=== PATIENT | female | born 1960 | race Caucasian/White ===

== ENCOUNTER 2018-08-21 20:14 | Emergency (ER) | payer MEDICAID ==
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
[2018-08-21 21:09] LABS: PLATELET COUNT, AUTOMATED 170 K/uL (150-450)
--- NOTE | 2018-08-21 21:53 | RADIOLOGY IMAGING REPORT ---
FACILITY: [facility] - [place], [place] PATIENT NAME: Cassie Mead : 1960 MR: [id number] V: [id number] EXAM DATE: ORDERING PHYSICIAN: KAREN SWANN TECHNOLOGIST: Location: [facility] Patient: Cassie Mead : 1960 Visit/Account:[id number] Date of Sevice: 08/21/2018 KNEE 4 VIEW RIGHT HISTORY: Fall with pain. COMPARISON: None. TECHNIQUE: AP, lateral, oblique, and sunrise views of the right knee. FINDINGS: There is no fracture or dislocation. No joint effusion. IMPRESSION: 1. No acute osseous abnormality of the right knee. Report Dictated By: Alanna Hernandez at 08/21/2018 9:48 PM Report E-Signed By: Alanna Hernandez at 08/21/2018 9:49 PM WSN:[id number]
--- NOTE | 2018-08-21 21:54 | RADIOLOGY IMAGING REPORT ---
FACILITY: [facility] - [place] PATIENT NAME: Cassie Mead : 1960 MR: [id number] V: [id number] EXAM DATE: ORDERING PHYSICIAN: KAREN SWANN TECHNOLOGIST: Location: [facility] Patient: Cassie Mead : 1960 Visit/Account:[id number] Date of Sevice: 08/21/2018 HAND COMPLETE RIGHT HISTORY: Fall with right wrist pain. COMPARISON: None. TECHNIQUE: PA, oblique, and lateral views of the right hand. FINDINGS: There is no fracture or dislocation. There is mild degenerative change of the first carpome tacarpal joint and of the first metacarpophalangeal joint. IMPRESSION: 1. No acute osseous abnormality of the right hand. Report Dictated By: Alanna Hernandez at 08/21/2018 9:49 PM Report E-Signed By: Alanna Hernandez at 08/21/2018 9:51 PM WSN:[id number]
--- NOTE | 2018-08-21 21:59 | RADIOLOGY IMAGING REPORT ---
FACILITY: [facility] [place] PATIENT NAME: Cassie Mead : 1960 MR: [id number] V: [id number] EXAM DATE: ORDERING PHYSICIAN: KAREN SWANN TECHNOLOGIST: Location: [facility] Patient: Cassie Mead : 1960 Visit/Account:[id number] Date of Sevice: 08/21/2018 CT BRAIN NO CONTRAST HISTORY: Fell and hit head. Right anterior head pain. COMPARISON: None. TECHNIQUE: Axial images were obtained from the skull base to the vertex without contrast. Sagittal an d coronal reformats were performed. One of the following dose optimization techniques was utilized in the performance of this exam: Autom ated exposure control; adjustment of the mA and/or kV according to the patient's size; or use of an i terative reconstruction technique. Specific details can be referenced in the facility's radiology CT exam operational policy. CONTRAST: None. FINDINGS: Brain: No intracranial hemorrhage, mass, or edema. There are nonspecific periventricular and subcorti miorslava white matter low attenuation foci, mild in severity. There is mild calcification of the internal carotid arteries. Sulci, ventricles, and cisterns: Sulci are prominent, compatible with mild atrophy, normal for age. T he ventricles are normal in size and configuration. The basilar cisterns are patent. Osseous structures: Intact. Paranasal sinuses and mastoids: Normal. There is rightward nasal septal deviation, and there is a sma ll rightward nasal septal spur. Orbits and soft tissues: There is a small contusion of the right anterolateral frontal scalp (image 4 8 series 2). Orbits are normal. IMPRESSION: 1. Scalp contusion, but no acute intracranial abnormality. 2. Nonspecific white matter changes are most likely due to chronic microvascular ischemic change, mil d in severity. Report Dictated By: Alanna Hernandez at 08/21/2018 9:51 PM Report E-Signed By: Alanna Hernandez at 08/21/2018 9:56 PM WSN:[id number]
[2018-08-21 22:30] VITALS: BP 109/78
[2018-08-21] MEDS ORDERED: NITROFURANTOIN MONO 100 MG PO ONE (22:30)
[2018-08-21] MEDS ORDERED: GABA-533 PO (22:43)
[2018-08-21] MEDS ORDERED: ABILIF5PT PO (22:43)
[2018-08-21] MEDS ORDERED: SERT25TA87 PO (22:43)
[2018-08-21] MEDS ORDERED: OMEP40CA48 PO (22:43)
[2018-08-21] MEDS ORDERED: METF-450 PO (22:43)
[2018-08-22] MEDS ORDERED: OXYB10TA16 PO (09:48)
[2018-08-22] MEDS ORDERED: GABA-549 PO (09:49)
[2018-08-22] MEDS ORDERED: TRAZ50TA34 PO (19:04)
[2018-08-22] MEDS ORDERED: PANT40TA65 PO (19:04)
[2018-08-22] MEDS ORDERED: SERT-181 PO (19:04)
== END 2018-08-21 23:14 ==
LOC: ER 20:43
DX: F33.1 Major depressive disorder, recurrent, moderate (principal); N30.01 Acute cystitis with hematuria; F10.20 Alcohol dependence, uncomplicated; S60.221A Contusion of right hand, initial encounter; S80.01XA Contusion of right knee, initial encounter; S00.03XA Contusion of scalp, initial encounter; W01.0XXA Fall on same level from slipping, tripping and stumbling without subsequent striking against object, initial encounter
CPT/HCPCS: 36415; 70450; 73130; 73564; 80305; 81001; 83735; 84443; 85025; 87077; 87088; 87186; 99284; G0480; 80320; 80329; 82040; 82247; 82310; 82374; 82435; 82565; 82947; 84075; 84132; 84155; 84295; 84450; 84460; 84520

== ENCOUNTER 2018-08-21 23:01 | Inpatient (IN) | payer MEDICAID ==
[~2018-08-21] VITALS: Ht 157.5 cm; Wt 64.0 kg
[~2018-08-21 23:01] MED LIST: ABILIF5PT PO; GABA-533 PO; METF-450 PO; OMEP40CA48 PO; SERT25TA87 PO
[2018-08-21] MEDS ORDERED: MAG HYD/AL HYD/SIMETH 30ML UDC PO PRN (23:10)
[2018-08-21 23:29] VITALS: BP 122/84
[2018-08-21] MEDS: DIAZEPAM 10 MG TAB PO PRN (23:59)
[2018-08-22 06:20] VITALS: BP 139/82
[2018-08-22] MEDS: DIAZEPAM 10 MG TAB PO PRN (06:29)
[2018-08-22 08:10] VITALS: BP 118/72
[2018-08-22] MEDS: FOLIC ACID 1 MG TAB PO SCH (08:34)
[2018-08-22] MEDS: NICOTINE 21 MG/24 HR PATCH TD SCH (08:34)
[2018-08-22] MEDS: MULTIVITAMINS TAB PO SCH (08:34)
[2018-08-22] MEDS: THIAMINE HCL 100 MG TAB PO SCH (08:35)
[2018-08-22] MEDS: PATCH REMOVAL 1 EA TP SCH (08:36)
[2018-08-22] MEDS ORDERED: OXYB10TA16 PO (09:48)
[2018-08-22] MEDS ORDERED: GABA-549 PO (09:49)
[2018-08-22] MEDS: PANTOPRAZOLE SOD 40 MG TABEC PO SCH ×2 (10:29→21:05)
[2018-08-22] MEDS: GABAPENTIN 300 MG CAP PO SCH ×3 (10:29→21:05)
[2018-08-22] MEDS: SERTRALINE HCL 50 MG TAB PO SCH (10:29)
[2018-08-22] MEDS: NITROFURANTOIN MONO 100 MG PO SCH ×2 (10:29→21:05)
[2018-08-22] MEDS: OXYBUTYNIN CHL XL 5 MG TABCR PO SCH (10:29)
[2018-08-22] MEDS: metFORMIN HCL 500 MG TAB PO SCH ×2 (10:29→17:12)
[2018-08-22] MEDS: ARIPiprazole 10 MG TAB PO SCH (10:30)
[2018-08-22 12:35] VITALS: BP 118/72
[2018-08-22 18:10] VITALS: BP 130/82
[2018-08-22] MEDS ORDERED: PANT40TA65 PO (19:04)
[2018-08-22] MEDS ORDERED: TRAZ50TA34 PO (19:04)
[2018-08-22] MEDS ORDERED: SERT-181 PO (19:04)
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
[2018-08-23 03:40] VITALS: BP 110/77
--- NOTE | 2018-08-23 08:02 | Antimicrobial Stewardship ---
Antimicrobial Time Out Antimicrobial Stewardship MD Service: Other (Psychiatrist) Indications: UTI Antimicrobial Used Macrodantin 100 mg po bid Start Date: Aug 22, 2018 Culture Results: No (gram negative rods with sensitivities to follow) KEANU RAMOS Aug 23, 2018 08:02
[2018-08-23 08:08] VITALS: BP 117/81
[2018-08-23] MEDS: metFORMIN HCL 500 MG TAB PO SCH ×2 (08:29→17:12)
[2018-08-23] MEDS: SERTRALINE HCL 50 MG TAB PO SCH (08:31)
[2018-08-23] MEDS: ARIPiprazole 10 MG TAB PO SCH (08:32)
[2018-08-23] MEDS: PANTOPRAZOLE SOD 40 MG TABEC PO SCH ×2 (08:32→20:22)
[2018-08-23] MEDS: FOLIC ACID 1 MG TAB PO SCH (08:32)
[2018-08-23] MEDS: GABAPENTIN 300 MG CAP PO SCH ×3 (08:33→20:22)
[2018-08-23] MEDS: OXYBUTYNIN CHL XL 5 MG TABCR PO SCH (08:33)
[2018-08-23] MEDS: THIAMINE HCL 100 MG TAB PO SCH (08:34)
[2018-08-23] MEDS: NITROFURANTOIN MONO 100 MG PO SCH ×2 (08:34→20:22)
[2018-08-23] MEDS: MULTIVITAMINS TAB PO SCH (08:34)
[2018-08-23] MEDS: NICOTINE 21 MG/24 HR PATCH TD SCH (08:38)
[2018-08-23] MEDS: PATCH REMOVAL 1 EA TP SCH (08:40)
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
[2018-08-23 20:59] VITALS: BP 109/94
[2018-08-24 04:00] VITALS: BP 116/69
[2018-08-24 07:37] LABS: PLATELET COUNT, AUTOMATED 92 K/uL (150-450)
[2018-08-24] MEDS: metFORMIN HCL 500 MG TAB PO SCH ×2 (08:24→17:02)
[2018-08-24] MEDS: GABAPENTIN 300 MG CAP PO SCH ×3 (08:25→20:46)
[2018-08-24] MEDS: NITROFURANTOIN MONO 100 MG PO SCH ×2 (08:25→20:45)
[2018-08-24] MEDS: ARIPiprazole 10 MG TAB PO SCH (08:25)
[2018-08-24] MEDS: PANTOPRAZOLE SOD 40 MG TABEC PO SCH ×2 (08:25→20:46)
[2018-08-24] MEDS: MULTIVITAMINS TAB PO SCH (08:25)
[2018-08-24] MEDS: PATCH REMOVAL 1 EA TP SCH (08:25)
[2018-08-24] MEDS: THIAMINE HCL 100 MG TAB PO SCH (08:25)
[2018-08-24] MEDS: OXYBUTYNIN CHL XL 5 MG TABCR PO SCH (08:25)
[2018-08-24] MEDS: FOLIC ACID 1 MG TAB PO SCH (08:25)
[2018-08-24] MEDS: SERTRALINE HCL 50 MG TAB PO SCH (08:26)
[2018-08-24] MEDS: NICOTINE 21 MG/24 HR PATCH TD SCH (08:28)
[2018-08-24 09:35] VITALS: BP 109/85
--- NOTE | 2018-08-24 14:14 | Medical Nutrition Therapy ---
Nutrition Anthropometrics Height (Inches): 62.00 Height (Calculated Centimeters: 157.520886 Weight (Pounds): 141 Weight (Calculated Kilograms): 63.957 BMI: 25.8 Ollie Nutrition Score: Adequate Ollie Nutrition Risk Score: 21 Dietary Referral Nutrition Risk Factors: Nutrition Risk Comment: Physical Findings Physical Appearance: Overweight BMI 25-29 Skin Appearance Skin Appearance: Edema Edema Location Modifier: Edema Location: Type of Edema: Degree of Edema: Gastrointestinal Symptoms GI Symtoms: Tube Present: Bowel Sounds: Recent Bowel Pattern: Stool Characteristics: Nutritional Education Nutrition Education Topic: Diabetic Nutrition Learning Barriers: Emotional Learning Readiness: Interested Teaching Methods: Discussion, Handout Response to Teaching: Verbalize understanding, Reinforcement needed Teaching Recipient: Patient Nutrition Counseling: Pt states she is either diabetic or prediabetic and doesn't know which. Explained parameters for prediabetes and diabetes. Assured pt that diet and medication she is on ( metformin) would be the same whichever dx she has. Reviewed CHO, protein, fats. Pt states she would like to lose the 10# she has gained recently. Encouaged pt to limit CHO to 3 serving/meal with unlimited veg and 3-4 oz meat, 1-2 fats. Nutrition Monitoring & Eval RD Patient Assessment Time: 45 minutes Nutritional Comment: provided 45 minutes diabetes education focusing on nutrition DIAMOND CISSE Aug 24, 2018 14:14
--- NOTE | 2018-08-24 14:46 | BHS Progress Note ---
BHS - Subjective Progress Notes Subjective Pt seen in conference room with team. Pt reports brighter mood, denies alcohol cravings but does have cigarette cravings; is using nicotine replacement. she is more open to going to rehab, asking good questions about the different programs in the state. She was informed that she cannot return to [facility] til she has had some treatment, and she shows good insight, saying "It's too easy to walk down the street and buy liquor." Will do applications to rehabs. PPD placed yesterday. Her sugars have been high-- will check fasting lipids, Hgb A1c, and consult Medicine tomorrow. Suicidal Ideation: None Homicidal Ideation: None BHS - Objective Physical Exam Vital Signs Vital Signs 08/23/18 08/24/18 03:40 09:35 Temp 99.9 Pulse 75 Resp 16 B/P (MAP) 109/85 (93) Pulse Ox 93 O2 Delivery Room Air O2 Flow Rate 2.0 Muscle Strength and Tone: WNL Gait and Station: Steady [facility] Medications Reviewed: Side Effects, Benefits of Medication, Risks Allergies Reviewed: Yes Mental Status Exam General Appearance: Casual, Cooperative, Polite, Good Interaction Speech: Delayed Mood: Dysthmic/Depressed Affect: Calm, Sad Thought Process: Organized, Logical, Goal Directed Thought Content: No Suicidal Ideation, No Homicidal Ideation, No Delusions, No Auditory Halllucinations, No Visual Hallucinations, No Thought Broadcasting, No Ideas of Reference, No Obsessions, No Compulsions, No Other Sensorium: Clear Cognition: Alert & Oriented-Person, Alert & Oriented-Place, Alert & Oriented- Time, Nzcbh-Uqmdorsv-Kygveexdz Memory: Immediate, Recent, Remote Intelligence: Average Insight Judgment: Fair Result Diagram: 08/24/18 0720 08/24/18 0720 Lab Hematology Test 08/22/18 21:00 08/24/18 00:00 08/24/18 07:20 Whole Blood Glucose 166 mg/DL (75-110) Hemoglobin A1c 6.8 % (4.6-6.0) Red Blood Count 4.20 M/uL (4.17-5.56) Mean Corpuscular Volume 102.5 fL (80.0-96.0) Mean Corpuscular Hemoglobin 34.8 pg (26.0-33.0) Mean Corpuscular Hemoglobin Concent 33.9 g/dL (32.0-36.0) Red Cell Distribution Width 14.6 % (11.5-14.5) Mean Platelet Volume 10.1 fL (7.2-11.1) Neutrophils (%) (Auto) 71.1 % (39.4-72.5) Lymphocytes (%) (Auto) 20.6 % (17.6-49.6) Monocytes (%) (Auto) 7.4 % (4.1-12.4) Eosinophils (%) (Auto) 0.7 % (0.4-6.7) Basophils (%) (Auto) 0.2 % (0.3-1.4) Nucleated RBC Relative Count (auto) 0.0 /100WBC Neutrophils # (Auto) 3.2 K/uL (2.0-7.4) Lymphocytes # (Auto) 0.9 K/uL (1.3-3.6) Monocytes # (Auto) 0.3 K/uL (0.3-1.0) Eosinophils # (Auto) 0.0 K/uL (0.0-0.5) Basophils # (Auto) 0.0 K/uL (0.0-0.1) Nucleated RBC Absolute Count (auto) 0.00 K/uL Sodium Level 138 mmol/L (137-145) Potassium Level 3.4 mmol/L (3.5-5.0) Chloride Level 100 mmol/L (98-107) Carbon Dioxide Level 29 mmol/L (22-31) Blood Urea Nitrogen 11 mg/dl (7-18) Creatinine 0.60 mg/dl (0.52-1.04) Glomerular Filtration Rate Calc > 60.0 Random Glucose 164 mg/dl (75-110) Calcium Level 9.2 mg/dl (8.4-10.2) Total Bilirubin 0.7 mg/dl (0.2-1.3) Aspartate Amino Transf (AST/SGOT) 29 U/L (0-35) Alanine Aminotransferase (ALT/SGPT) 27 U/L (0-56) Alkaline Phosphatase 111 U/L (0-126) Total Protein 6.1 g/dl (6.3-8.2) Albumin 3.7 g/dl (3.5-5.0) Chemistry Test 08/22/18 21:00 08/24/18 00:00 08/24/18 07:20 Whole Blood Glucose 166 mg/DL (75-110) Hemoglobin A1c 6.8 % (4.6-6.0) White Blood Count 4.5 k/uL (4.5-11.0) Red Blood Count 4.20 M/uL (4.17-5.56) Hemoglobin 14.6 g/dL (12.0-16.0) Hematocrit 43.1 % (34.0-47.0) Mean Corpuscular Volume 102.5 fL (80.0-96.0) Mean Corpuscular Hemoglobin 34.8 pg (26.0-33.0) Mean Corpuscular Hemoglobin Concent 33.9 g/dL (32.0-36.0) Red Cell Distribution Width 14.6 % (11.5-14.5) Platelet Count 92 K/uL (150-450) Mean Platelet Volume 10.1 fL (7.2-11.1) Neutrophils (%) (Auto) 71.1 % (39.4-72.5) Lymphocytes (%) (Auto) 20.6 % (17.6-49.6) Monocytes (%) (Auto) 7.4 % (4.1-12.4) Eosinophils (%) (Auto) 0.7 % (0.4-6.7) Basophils (%) (Auto) 0.2 % (0.3-1.4) Nucleated RBC Relative Count (auto) 0.0 /100WBC Neutrophils # (Auto) 3.2 K/uL (2.0-7.4) Lymphocytes # (Auto) 0.9 K/uL (1.3-3.6) Monocytes # (Auto) 0.3 K/uL (0.3-1.0) Eosinophils # (Auto) 0.0 K/uL (0.0-0.5) Basophils # (Auto) 0.0 K/uL (0.0-0.1) Nucleated RBC Absolute Count (auto) 0.00 K/uL Glomerular Filtration Rate Calc > 60.0 Calcium Level 9.2 mg/dl (8.4-10.2) Total Bilirubin 0.7 mg/dl (0.2-1.3) Aspartate Amino Transf (AST/SGOT) 29 U/L (0-35) Alanine Aminotransferase (ALT/SGPT) 27 U/L (0-56) Alkaline Phosphatase 111 U/L (0-126) Total Protein 6.1 g/dl (6.3-8.2) Albumin 3.7 g/dl (3.5-5.0) [facility] Assessment and Plan Tdfn-[id number] Encounter Date: Aug 24, 2018 Lmwh-nf-Akvy Encounter Time: 11:00 [facility] Plan: Necessary Precautions, Individual/Group Therapy, Admin/Titrate Meds, Educate Patient Tobacco Medications: Started Multpiple Antipsychotics Used: No Problems: (1) Alcohol use disorder, severe, dependence (2) Persistent depressive disorder SUZI TUCKER MD Aug 24, 2018 14:46
[2018-08-25 06:55] VITALS: BP 126/68
[2018-08-25] MEDS: metFORMIN HCL 500 MG TAB PO SCH ×2 (08:09→17:14)
[2018-08-25] MEDS: FOLIC ACID 1 MG TAB PO SCH (08:10)
[2018-08-25] MEDS: PANTOPRAZOLE SOD 40 MG TABEC PO SCH ×2 (08:10→20:48)
[2018-08-25] MEDS: ARIPiprazole 10 MG TAB PO SCH (08:10)
[2018-08-25] MEDS: OXYBUTYNIN CHL XL 5 MG TABCR PO SCH (08:10)
[2018-08-25] MEDS: GABAPENTIN 300 MG CAP PO SCH ×3 (08:10→20:48)
[2018-08-25] MEDS: MULTIVITAMINS TAB PO SCH (08:10)
[2018-08-25] MEDS: NITROFURANTOIN MONO 100 MG PO SCH ×2 (08:10→20:48)
[2018-08-25] MEDS: PATCH REMOVAL 1 EA TP SCH (08:10)
[2018-08-25] MEDS: THIAMINE HCL 100 MG TAB PO SCH (08:10)
[2018-08-25] MEDS: SERTRALINE HCL 50 MG TAB PO SCH (08:11)
[2018-08-25] MEDS: NICOTINE 21 MG/24 HR PATCH TD SCH (08:13)
[2018-08-25 13:30] VITALS: BP 112/62
--- NOTE | 2018-08-25 20:38 | BHS Progress Note ---
[facility] - Subjective Progress Notes Subjective Pt seen in treatment team meeting with two representatives from [facility] attending. Pt doing better, she has completed detox, denies alcohol cravings. She has been very active in her treatment, and is now clear that she wants to go to rehab. [facility] in [place] has a possible bed open next week, and application has been sent. Hopefully daughter can transport, and [facility] will look in to contribution for gas money. She is tolerating medications well without side effects-- denies agitation, no EPS noted, sleeping OK, appetite has been good. Continue current tx plan. Suicidal Ideation: None Homicidal Ideation: None [facility] - Objective Physical Exam Vital Signs Vital Signs 08/23/18 08/25/18 03:40 13:30 Temp 99.1 Pulse 93 Resp 16 B/P (MAP) 112/62 (79) Pulse Ox 90 O2 Delivery Room Air O2 Flow Rate 2.0 Muscle Strength and Tone: WNL Gait and Station: Steady [facility] Medications Reviewed: Side Effects, Benefits of Medication, Risks Allergies Reviewed: Yes Mental Status Exam General Appearance: Casual, Well Groomed, Good Eye Contact, Cooperative, Polite, Good Interaction Speech: Clear, Spontaneous, Normal Rate, Normal Rhythm, Normal Volume, Normal Tone Mood: Dysthmic/Depressed (less so, "feeling better") Affect: Calm, Neutral Thought Process: Organized, Logical, Goal Directed Thought Content: No Suicidal Ideation, No Homicidal Ideation, No Delusions, No Auditory Halllucinations, No Visual Hallucinations, No Thought Broadcasting, No Ideas of Reference, No Obsessions, No Compulsions, No Other Sensorium: Clear Cognition: Alert & Oriented-Person, Alert & Oriented-Place, Alert & Oriented- Time, Dddjj-Kuyrwekt-Nqfiqnzxx Memory: Immediate, Recent, Remote Intelligence: Average Insight Judgment: Fair Result Diagram: 08/24/18 0720 08/24/18 0720 [facility] Assessment and Plan Vtnp-sz-[id number] Encounter Date: Aug 25, 2018 Jgoo-hf-Zvzs Encounter Time: 10:30 [facility] Plan: Necessary Precautions, Individual/Group Therapy, Admin/Titrate Meds, Educate Patient Tobacco Medications: Started Multpiple Antipsychotics Used: No Problems: (1) Alcohol use disorder, severe, dependence (2) Persistent depressive disorder SUZI TUCKER MD Aug 25, 2018 20:38
[2018-08-25 21:34] VITALS: BP 120/89
[2018-08-26 06:18] VITALS: BP 82/56
[2018-08-26] MEDS: NICOTINE 21 MG/24 HR PATCH TD SCH (08:41)
[2018-08-26] MEDS: OXYBUTYNIN CHL XL 5 MG TABCR PO SCH (08:42)
[2018-08-26] MEDS: MULTIVITAMINS TAB PO SCH (08:42)
[2018-08-26] MEDS: SERTRALINE HCL 50 MG TAB PO SCH (08:42)
[2018-08-26] MEDS: NITROFURANTOIN MONO 100 MG PO SCH ×2 (08:42→20:44)
[2018-08-26] MEDS: GABAPENTIN 300 MG CAP PO SCH ×3 (08:42→20:44)
[2018-08-26] MEDS: THIAMINE HCL 100 MG TAB PO SCH (08:42)
[2018-08-26] MEDS: metFORMIN HCL 500 MG TAB PO SCH ×2 (08:42→17:25)
[2018-08-26] MEDS: FOLIC ACID 1 MG TAB PO SCH (08:43)
[2018-08-26] MEDS: PANTOPRAZOLE SOD 40 MG TABEC PO SCH ×2 (08:43→20:44)
[2018-08-26] MEDS: ARIPiprazole 10 MG TAB PO SCH (08:43)
[2018-08-26] MEDS: PATCH REMOVAL 1 EA TP SCH ×2 (08:56→10:54)
--- NOTE | 2018-08-26 10:18 | BHS Progress Note ---
BHS - Subjective Progress Notes Subjective "I'm nervous about where I'm going to go." Considering [facility] in [place], denies alcohol cravings Previous multiple rehabs, last residential rehab "I don't remember." Anxiety 10/23, denies depression, denies SI/HI Sleep sufficient, some racing thoughts Daughter good support system Suicidal Ideation: None Homicidal Ideation: None BHS - Objective Physical Exam Vital Signs Vital Signs Date Time Temp Pulse Resp B/P (MAP) Pulse Ox O2 Delivery O2 Flow Rate FiO2 08/26/18 06:18 98.4 66 82/56 (65) 94 Room Air 08/25/18 13:30 16 08/23/18 03:40 2.0 Deferred Medications (Trade) Dose Ordered Sig/Antoni Route PRN Reason Start Time Stop Time Status Last Admin Dose Admin Aripiprazole (Abilify 10 Mg Tab (Or Equiv)) 5 mg QAM PO 08/22/18 09:30 09/21/18 09:29 08/26/18 08:43 Diazepam (Valium(*) 10 Mg Tab (Or Equiv)) 20 mg Q1H PRN PO FOLLOW CIWA PROTOCOL 08/21/18 23:10 09/04/18 23:09 08/22/18 06:29 Folic Acid (Folic Acid (*) 1 Mg Tab) 1 mg QDAY PO 08/22/18 09:00 09/21/18 08:59 08/26/18 08:43 Gabapentin (Neurontin(*) 300 Mg Cap (Or Equiv)) 300 mg TID PO 08/22/18 09:30 09/21/18 09:29 08/26/18 08:42 Metformin HCl (Glucophage(*) 500 Mg Tab (Or Equiv)) 500 mg BIDBS PO 08/22/18 09:30 09/21/18 09:29 08/26/18 08:42 Multivitamins (Thera-M Enhanced Tab (Or Equiv)) 1 each QDAY PO 08/22/18 09:00 09/21/18 08:59 08/26/18 08:42 Nicotine (Nicoderm Cq(*) 21 Mg/24 Hr (Or Equiv)) 21 mg QDAY TD 08/22/18 09:00 09/21/18 08:59 08/26/18 08:41 Nitrofurantoin Macrocrystals (Macrobid(*) 100 Mg Capsule(Or Equiv)) 100 mg BID PO 08/22/18 10:00 08/27/18 09:59 08/26/18 08:42 Oxybutynin Chloride (Ditropan-Xl (Or Equiv)) 10 mg QDAY PO 08/22/18 10:30 09/21/18 10:29 08/26/18 08:42 Pantoprazole Sodium (Protonix (*) (Or Equiv)) 40 mg BID PO 08/22/18 09:30 09/21/18 09:29 08/26/18 08:43 Sertraline HCl (Zoloft 50 Mg Tab (Or Equiv)) 200 mg QDAY PO 08/22/18 09:30 09/21/18 09:29 08/26/18 08:42 Thiamine HCl (Vitamin B-1(*) 100 Mg Tab (Or Equiv)) 100 mg QDAY PO 08/22/18 09:00 09/21/18 08:59 08/26/18 08:42 Muscle Strength and Tone: WNL Gait and Station: Steady [facility] Medications Reviewed: Side Effects, Benefits of Medication, Risks Allergies Reviewed: Yes Mental Status Exam General Appearance: Casual, Well Groomed, Good Eye Contact, Cooperative, Polite, Good Interaction Speech: Clear, Spontaneous, Normal Rate, Normal Rhythm, Normal Volume, Normal Tone Mood: Dysthmic/Depressed (less so, "feeling better") Affect: Calm, Neutral Thought Process: Organized, Logical, Goal Directed Thought Content: No Suicidal Ideation, No Homicidal Ideation, No Delusions, No Auditory Halllucinations, No Visual Hallucinations, No Thought Broadcasting, No Ideas of Reference, No Obsessions, No Compulsions, No Other Sensorium: Clear Cognition: Alert & Oriented-Person, Alert & Oriented-Place, Alert & Oriented- Time, Tiech-Ohrjgkzm-Eroabmiqi Memory: Immediate, Recent, Remote Intelligence: Average Insight Judgment: Fair Result Diagram: 08/24/1871908/24/18719 [facility] Assessment and Plan Pvxh-tj-Ypyk Encounter Date: Aug 26, 2018 Wknw-rx-Fvvy Encounter Time: 10:15 [facility] Plan: Necessary Precautions, Individual/Group Therapy, Admin/Titrate Meds, Educate Patient Tobacco Medications: Started Multpiple Antipsychotics Used: No Problems: (1) Alcohol use disorder, severe, dependence Status: Chronic (2) Persistent depressive disorder Status: Chronic Condition Continue CIWA for alcohol withdrawal Continue current medications and treatment Treatment team 08/28/18 DIAMOND TARIQ NP Aug 26, 2018 10:18
[2018-08-26] MEDS ORDERED: NICOTINE CARTRIDGE 1 EA PO PRN (10:35)
[2018-08-26] MEDS: NICOTINE INH SYSTEM 10 MG/INH INH PRN (10:52)
[2018-08-26 22:26] VITALS: BP 120/74
[2018-08-27 05:54] VITALS: BP 99/80
[2018-08-27] MEDS: NICOTINE INH SYSTEM 10 MG/INH INH PRN (07:05)
[2018-08-27] MEDS: MULTIVITAMINS TAB PO SCH (08:37)
[2018-08-27] MEDS: NITROFURANTOIN MONO 100 MG PO SCH (08:37)
[2018-08-27] MEDS: FOLIC ACID 1 MG TAB PO SCH (08:37)
[2018-08-27] MEDS: SERTRALINE HCL 50 MG TAB PO SCH (08:37)
[2018-08-27] MEDS: metFORMIN HCL 500 MG TAB PO SCH ×2 (08:37→17:52)
[2018-08-27] MEDS: GABAPENTIN 300 MG CAP PO SCH ×3 (08:37→20:39)
[2018-08-27] MEDS: PANTOPRAZOLE SOD 40 MG TABEC PO SCH ×2 (08:37→20:39)
[2018-08-27] MEDS: THIAMINE HCL 100 MG TAB PO SCH (08:38)
[2018-08-27] MEDS: ARIPiprazole 10 MG TAB PO SCH (08:38)
[2018-08-27] MEDS: OXYBUTYNIN CHL XL 5 MG TABCR PO SCH (08:38)
--- NOTE | 2018-08-27 12:00 | BHS Progress Note ---
BHS - Subjective Progress Notes Subjective "I'm relieved and nervous about going to rehab." Considering residential rehab in [facility] Denies urge to drink, eating and drinking fluids well Denies depression, anxiety or anger Denies urge for harm to self or others Working on substance abuse worksheets Suicidal Ideation: None Homicidal Ideation: None S - Objective Physical Exam Vital Signs Laboratory Tests 08/24/18 07:20 Laboratory Tests 08/22/18 21:00: Whole Blood Glucose 166 08/24/18 00:00: Hemoglobin A1c 6.8 08/24/18 07:20: White Blood Count 4.5, Red Blood Count 4.20, Hemoglobin 14.6, Hematocrit 43.1, Mean Corpuscular Volume 102.5, Mean Corpuscular Hemoglobin 34.8, Mean Corpuscular Hemoglobin Concent 33.9, Red Cell Distribution Width 14.6, Platelet Count 92, Mean Platelet Volume 10.1, Neutrophils (%) (Auto) 71.1, Lymphocytes (%) (Auto) 20.6, Monocytes (%) (Auto) 7.4, Eosinophils (%) (Auto) 0.7, Basophils (%) (Auto) 0.2, Nucleated RBC Relative Count (auto) 0.0, Neutrophils # (Auto) 3.2, Lymphocytes # (Auto) 0.9, Monocytes # (Auto) 0.3, Eosinophils # (Auto) 0.0, Basophils # (Auto) 0.0, Nucleated RBC Absolute Count (auto) 0.00, Sodium Level 138, Potassium Level 3.4, Chloride Level 100, Carbon Dioxide Level 29, Blood Urea Nitrogen 11, Creatinine 0.60, Glomerular Filtration Rate Calc > 60.0, Random Glucose 164, Calcium Level 9.2, Total Bilirubin 0.7, Aspartate Amino Transf (AST/SGOT) 29, Alanine Aminotransferase (ALT/SGPT) 27, Alkaline Phosphatase 111, Total Protein 6.1, Albumin 3.7, Tuberculin Skin Test 0 08/25/18 06:34: Fasting Glucose 207, Triglycerides Level 118, Cholesterol Level 138, LDL Cholesterol 43, VLDL Cholesterol 24, HDL Cholesterol 71, Percent HDL Cholesterol 51.0, Cholesterol Ratio (LDL/HDL) 0.60, Cholesterol/HDL Ratio 1.9 Medications (Trade) Dose Ordered Sig/Antoni Route PRN Reason Start Time Stop Time Status Last Admin Dose Admin Aripiprazole (Abilify 10 Mg Tab (Or Equiv)) 5 mg QAM PO 08/22/18 09:30 09/21/18 09:29 08/27/18 08:38 Diazepam (Valium(*) 10 Mg Tab (Or Equiv)) 20 mg Q1H PRN PO FOLLOW [facility] PROTOCOL 08/21/18 23:10 09/04/18 23:09 08/22/18 06:29 Folic Acid (Folic Acid (*) 1 Mg Tab) 1 mg QDAY PO 08/22/18 09:00 09/21/18 08:59 08/27/18 08:37 Gabapentin (Neurontin(*) 300 Mg Cap (Or Equiv)) 300 mg TID PO 08/22/18 09:30 09/21/18 09:29 08/27/18 08:37 Metformin HCl (Glucophage(*) 500 Mg Tab (Or Equiv)) 500 mg BIDBS PO 08/22/18 09:30 09/21/18 09:29 08/27/18 08:37 Multivitamins (Thera-M Enhanced Tab (Or Equiv)) 1 each QDAY PO 08/22/18 09:00 09/21/18 08:59 08/27/18 08:37 Nicotine (Nicoderm Cq(*) 21 Mg/24 Hr (Or Equiv)) 21 mg QDAY TD 08/22/18 09:00 08/26/18 10:32 DC 08/26/18 08:41 Nicotine (Nicotrol Inhaler 10 Mg/Inh (Or Equiv)) 10 mg PRN PRN INH NICOTINE REPLACEMENT 08/26/18 10:35 09/25/18 10:34 08/27/18 07:05 Nitrofurantoin Macrocrystals (Macrobid(*) 100 Mg Capsule(Or Equiv)) 100 mg BID PO 08/22/18 10:00 08/27/18 09:59 DC 08/27/18 08:37 Oxybutynin Chloride (Ditropan-Xl (Or Equiv)) 10 mg QDAY PO 08/22/18 10:30 09/21/18 10:29 08/27/18 08:38 Pantoprazole Sodium (Protonix (*) (Or Equiv)) 40 mg BID PO 08/22/18 09:30 09/21/18 09:29 08/27/18 08:37 Sertraline HCl (Zoloft 50 Mg Tab (Or Equiv)) 200 mg QDAY PO 08/22/18 09:30 09/21/18 09:29 08/27/18 08:37 Thiamine HCl (Vitamin B-1(*) 100 Mg Tab (Or Equiv)) 100 mg QDAY PO 08/22/18 09:00 09/21/18 08:59 08/27/18 08:38 Muscle Strength and Tone: WNL Gait and Station: Steady [facility] Medications Reviewed: Side Effects, Benefits of Medication, Risks Allergies Reviewed: Yes Mental Status Exam General Appearance: Casual, Well Groomed, Good Eye Contact, Cooperative, Polite, Good Interaction Speech: Clear, Spontaneous, Normal Rate, Normal Rhythm, Normal Volume, Normal Tone Mood: No Dysthmic/Depressed (less so, "feeling better"); Euthymic Affect: Calm, Neutral Thought Process: Organized, Logical, Goal Directed Thought Content: No Suicidal Ideation, No Homicidal Ideation, No Delusions, No Auditory Halllucinations, No Visual Hallucinations, No Thought Broadcasting, No Ideas of Reference, No Obsessions, No Compulsions, No Other Sensorium: Clear Cognition: Alert & Oriented-Person, Alert & Oriented-Place, Alert & Oriented- Time, Uyrky-Jekrzqeu-Ajuwfwwcj Memory: Immediate, Recent, Remote Intelligence: Average Insight Judgment: Fair Result Diagram: 08/24/18 0720 08/24/18 0720 [facility] Assessment and Plan [id number] Encounter Date: Aug 27, 2018 Gkqa-vs-Ggxy Encounter Time: 11:45 [facility] Plan: Necessary Precautions, Individual/Group Therapy, Admin/Titrate Meds, Educate Patient Tobacco Medications: Started Multpiple Antipsychotics Used: No Problems: (1) Alcohol use disorder, severe, dependence Status: Chronic (2) Persistent depressive disorder Status: Chronic Condition Ongoing discharge planning with discussion about residential rehab Daughter coming today for team meeting, good support system Optimistic and motivated regarding sobriety DIAMOND TARIQ NP Aug 27, 2018 12:00
[2018-08-27] MEDS: NICOTINE 21 MG/24 HR PATCH TD SCH (13:17)
[2018-08-27] MEDS: traZODone HCL 50 MG TAB PO PRN (20:39)
[2018-08-28 06:09] LABS: PLATELET COUNT, AUTOMATED 128 K/uL (150-450)
[2018-08-28 06:18] VITALS: BP 105/75
[2018-08-28] MEDS: NICOTINE 21 MG/24 HR PATCH TD SCH (08:22)
[2018-08-28] MEDS: PANTOPRAZOLE SOD 40 MG TABEC PO SCH ×2 (08:23→21:14)
[2018-08-28] MEDS: SERTRALINE HCL 50 MG TAB PO SCH (08:23)
[2018-08-28] MEDS: OXYBUTYNIN CHL XL 5 MG TABCR PO SCH (08:23)
[2018-08-28] MEDS: GABAPENTIN 300 MG CAP PO SCH ×3 (08:23→21:14)
[2018-08-28] MEDS: FOLIC ACID 1 MG TAB PO SCH (08:23)
[2018-08-28] MEDS: THIAMINE HCL 100 MG TAB PO SCH (08:23)
[2018-08-28] MEDS: MULTIVITAMINS TAB PO SCH (08:23)
[2018-08-28] MEDS: ARIPiprazole 10 MG TAB PO SCH (08:23)
[2018-08-28] MEDS: metFORMIN HCL 500 MG TAB PO SCH ×2 (08:23→17:31)
--- NOTE | 2018-08-28 14:47 | BHS Progress Note ---
[facility] - Subjective Progress Notes Subjective Pt seen in treatment team. Pt doing ok, she is still motivated to go to treatment at [facility], we are awaiting a bed date. She denies urges to drink. She has some anxiety and depression today regarding the transition to rehab. She slept better last night with trazodone. PPD was negative. Her fasting glucoses have been pretty high, with increase metformin to 500 q am and 1000 q dinner. Continue groups and psychoeducation re sobriety. Suicidal Ideation: None Homicidal Ideation: None [facility] - Objective Physical Exam Vital Signs Vital Signs 08/28/18 06:18 Temp 98.3 Pulse 73 Resp 15 B/P (MAP) 105/75 (85) Pulse Ox 92 O2 Delivery Room Air Muscle Strength and Tone: WNL Gait and Station: Steady [facility] Medications Reviewed: Side Effects, Benefits of Medication, Risks Allergies Reviewed: Yes Mental Status Exam General Appearance: Casual, Well Groomed, Good Eye Contact, Cooperative, Polite, Good Interaction Speech: Clear, Spontaneous, Normal Rate, Normal Rhythm, Normal Volume, Normal Tone Mood: No Dysthmic/Depressed (less so, "feeling better"); Euthymic Affect: Calm, Neutral Thought Process: Organized, Logical, Goal Directed Thought Content: No Suicidal Ideation, No Homicidal Ideation, No Delusions, No Auditory Halllucinations, No Visual Hallucinations, No Thought Broadcasting, No Ideas of Reference, No Obsessions, No Compulsions, No Other Sensorium: Clear Cognition: Alert & Oriented-Person, Alert & Oriented-Place, Alert & Oriented- Time, Rlpyr-Xazdfbzq-Gmiuqjolv Memory: Immediate, Recent, Remote Intelligence: Average Insight Judgment: Fair Result Diagram: 08/28/18 0555 08/28/18 0555 [facility] Assessment and Plan Csom-[id number] Encounter Date: Aug 28, 2018 Swbk-[id number] Encounter Time: 10:00 [facility] Plan: Necessary Precautions, Individual/Group Therapy, Admin/Titrate Meds, Educate Patient Tobacco Medications: Started Multpiple Antipsychotics Used: No Problems: (1) Alcohol use disorder, severe, dependence Status: Chronic (2) Persistent depressive disorder Status: Chronic SUZI TUCKER MD Aug 28, 2018 14:47
[2018-08-28 21:01] VITALS: BP 106/77
[2018-08-28] MEDS: traZODone HCL 50 MG TAB PO PRN (21:15)
[2018-08-29 06:02] VITALS: BP 105/73
[2018-08-29] MEDS: ARIPiprazole 10 MG TAB PO SCH (08:21)
[2018-08-29] MEDS: metFORMIN HCL 500 MG TAB PO SCH ×2 (08:22→17:42)
[2018-08-29] MEDS: OXYBUTYNIN CHL XL 5 MG TABCR PO SCH (08:22)
[2018-08-29] MEDS: THIAMINE HCL 100 MG TAB PO SCH (08:23)
[2018-08-29] MEDS: MULTIVITAMINS TAB PO SCH (08:23)
[2018-08-29] MEDS: PANTOPRAZOLE SOD 40 MG TABEC PO SCH ×2 (08:23→20:41)
[2018-08-29] MEDS: GABAPENTIN 300 MG CAP PO SCH ×3 (08:23→20:41)
[2018-08-29] MEDS: FOLIC ACID 1 MG TAB PO SCH (08:23)
[2018-08-29] MEDS: NICOTINE 21 MG/24 HR PATCH TD SCH (08:24)
[2018-08-29] MEDS: SERTRALINE HCL 50 MG TAB PO SCH (08:24)
[2018-08-29] MEDS ORDERED: METF-452 PO (14:24)
[2018-08-29] MEDS ORDERED: NICO-218 TD (14:27)
[2018-08-29] MEDS: traZODone HCL 50 MG TAB PO PRN (20:41)
[2018-08-29 21:40] VITALS: BP 110/62
--- NOTE | 2018-08-29 22:48 | BHS Progress Note ---
[facility] - Subjective Progress Notes Subjective Pt seen in conference room with team. Pt in good spirits today, has been accepted at [facility] in [place] for admission tomorrow for inpatient rehab. Daughter will transport. Pt tolerating meds well, denies SE's. She has been motivated, participating actively in groups and individual therapies. Slept well last night. For discharge tomorrow to rehab. Suicidal Ideation: None Homicidal Ideation: None [facility] - Objective Physical Exam Vital Signs Vital Signs 08/29/18 08/29/18 06:02 21:40 Temp 99.3 Pulse 101 Resp 15 B/P (MAP) 110/62 (78) Pulse Ox 96 O2 Delivery Room Air Muscle Strength and Tone: WNL Gait and Station: Steady [facility] Medications Reviewed: Side Effects, Benefits of Medication, Risks Allergies Reviewed: Yes Mental Status Exam General Appearance: Casual, Well Groomed, Good Eye Contact, Cooperative, Polite, Good Interaction Speech: Clear, Spontaneous, Normal Rate, Normal Rhythm, Normal Volume, Normal T one Mood: Euthymic Affect: Anxious (about leaving) Thought Process: Organized, Logical, Goal Directed Thought Content: No Suicidal Ideation, No Homicidal Ideation, No Delusions, No Auditory Halllucinations, No Visual Hallucinations, No Thought Broadcasting, No Ideas of Reference, No Obsessions, No Compulsions, No Other Sensorium: Clear Cognition: Alert & Oriented-Person, Alert & Oriented-Place, Alert & Oriented- Time, Zymqg-Zltmlfmy-Fjwceuhdm Memory: Immediate, Recent, Remote Intelligence: Average Insight Judgment: Fair Result Diagram: 08/28/18 0555 08/28/18 0555 [facility] Assessment and Plan Nzbo-vl-Ujrx Encounter Date: Aug 29, 2018 Inbc-om-Wppt Encounter Time: 11:30 [facility] Plan: Necessary Precautions, Individual/Group Therapy, Admin/Titrate Meds, Educate Patient Tobacco Medications: Started Multpiple Antipsychotics Used: No Problems: (1) Alcohol use disorder, severe, dependence Status: Chronic (2) Persistent depressive disorder Status: Chronic USZI TUCKER MD Aug 29, 2018 22:48
[2018-08-30 04:55] VITALS: BP 111/85
[2018-08-30] MEDS: MULTIVITAMINS TAB PO SCH (07:58)
[2018-08-30] MEDS: metFORMIN HCL 500 MG TAB PO SCH (07:58)
[2018-08-30] MEDS: OXYBUTYNIN CHL XL 5 MG TABCR PO SCH (07:59)
[2018-08-30] MEDS: ARIPiprazole 10 MG TAB PO SCH (07:59)
[2018-08-30] MEDS: FOLIC ACID 1 MG TAB PO SCH (08:00)
[2018-08-30] MEDS: THIAMINE HCL 100 MG TAB PO SCH (08:00)
[2018-08-30] MEDS: GABAPENTIN 300 MG CAP PO SCH (08:00)
[2018-08-30] MEDS: PANTOPRAZOLE SOD 40 MG TABEC PO SCH (08:02)
[2018-08-30] MEDS: SERTRALINE HCL 50 MG TAB PO SCH (08:02)
[2018-08-30] MEDS: NICOTINE 21 MG/24 HR PATCH TD SCH (08:03)
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
== END 2018-08-30 08:17 | DRG 897 ==
LOC: BHS 23:01
PROVIDERS: ADMIT Psychiatry & Neurology Psychiatry; ATTEND Psychiatry & Neurology Psychiatry
DX: F10.230 Alcohol dependence with withdrawal, uncomplicated (principal); F34.1 Dysthymic disorder; E11.65 Type 2 diabetes mellitus with hyperglycemia; F17.210 Nicotine dependence, cigarettes, uncomplicated; K21.9 Gastro-esophageal reflux disease without esophagitis; R32 Unspecified urinary incontinence; Y90.8 Blood alcohol level of 240 mg/100 ml or more; Z91.411 Personal history of adult psychological abuse; Z79.84 Long term (current) use of oral hypoglycemic drugs; Z87.440 Personal history of urinary (tract) infections; Z81.1 Family history of alcohol abuse and dependence; Z81.8 Family history of other mental and behavioral disorders
CPT/HCPCS: 36415; 36416; 70450; 73564; 80305; 80320; 80329; 81001; 82040; 82247; 82310; 82374; 82435; 82465; 82565; 82947; 82948; 83036; 83718; 83735; 84075; 84132; 84155; 84295; 84443; 84450; 84460; 84478; 84520; 85025; 86580; 87077; 87088; 87186; 99284